=== PATIENT | female | born 1975 | race African-American/Black ===

== ENCOUNTER 2017-07-28 10:02 | Inpatient (IN) | payer OTHER ==
[~2017-07-28] VITALS: Ht 172.7 cm; Wt 69.6 kg
[2017-07-28 11:08] LABS: UA SPECIFIC GRAVITY 1.015 (1.005-1.035); microscopic required? YES; urine erythrocyte NEGATIVE (NEGATIVE)
[2017-07-28 11:21] LABS: AMPHETAMINE QUAL UR NONE DETECTED (NEG <=1000)
[2017-07-28 11:29] LABS: PLATELET COUNT 417 x10^3mcL (130-400); RED CELL DISTRIBUTION WIDTH 15.4 % (11.5-14.5)
[2017-07-28 11:36] LABS: CALCIUM 8.9 mg/dL (8.5-10.1); CARBON DIOXIDE 30.6 mmol/L (21-32); CHLORIDE SERUM 99 mmol/L (98-107); CREATININE SERUM 0.8 mg/dL (0.6-1.0); GFR1 > 60 mL/min; GLUCOSE SERUM 84 mg/dL (74-106); POTASSIUM SERUM 4.4 mmol/L (3.5-5.1); SODIUM SERUM 136 mmol/L (136-145)
[2017-07-28 11:43] LABS: MONOCYTE 6 % (0-7); SEGMENTED NEUTROPHILS 81 % (37-75)
[2017-07-28 11:44] LABS: ATYPICAL LYMPH 2 %; BAND NEUTROPHIL 0 % (0-10); BASOPHIL 0 % (0-2)
[2017-07-28 11:45] LABS: PLATELET MORPHOLOGY PLATELETS INCREASED; rbc morphology (normal/abnorm) ABNORMAL (NORMAL)
[2017-07-28 11:48] LABS: ALBUMIN 3.4 g/dL (3.4-5.0); ALKALINE PHOSPHATASE 88 U/L (46-116); ALT/SGPT 15 U/L (14-59); AMYLASE 41 U/L (25-115); AST/SGOT 12 U/L (15-37); BILIRUBIN TOTAL 0.2 mg/dL (0.20-1.00); LIPASE 116 IU/L (73-393); T4(THYROXINE) 4.7 ug/dL (4.7-13.3); TOTAL PROTEIN, SERUM 7.5 g/dL (6.4-8.2)
[2017-07-28 11:50] LABS: CHOLESTEROL 221 mg/dL (<200); HDL CHOLESTEROL 61 mg/dL (40-60)
[2017-07-28] MEDS ORDERED: LEVOTHYROXIN0.025 M2 PO (12:25)
[2017-07-28] MEDS ORDERED: ROC0.5 PO (12:26)
[2017-07-28] MEDS ORDERED: GOOD NEIGH1200 MG/15 PO (12:26)
[2017-07-28] MEDS ORDERED: LOV40I SQ (12:26)
[2017-07-28] MEDS ORDERED: PEPCID20 MG PO (12:27)
[2017-07-28] MEDS ORDERED: RISPERDAL2 M1 PO (12:27)
[2017-07-28] MEDS ORDERED: APAP/HYDROCODON1 T13 PO (12:28)
[2017-07-28] MEDS ORDERED: [UNRECOGNIZED DRUG - CODE] PO (12:28)
[2017-07-28] MEDS ORDERED: SYSTANE0.3% (12:29)
[2017-07-28] MEDS ORDERED: XOPENEX1.25 MG/3 (12:29)
[2017-07-28] MEDS ORDERED: SUPER CALCIUM600 MG PO (12:30)
[2017-07-28 13:50] VITALS: BP 138/88
[2017-07-28 13:52] VITALS: BP 138/88
[2017-07-28 16:09] VITALS: BP 124/80
[2017-07-28 20:58] VITALS: BP 107/73
[2017-07-29 05:49] LABS: BASOPHIL % 0.1 % (0-2)
[2017-07-29 05:56] LABS: CALCIUM 9.4 mg/dL (8.5-10.1); CARBON DIOXIDE 26.5 mmol/L (21-32); CHLORIDE SERUM 101 mmol/L (98-107); CREATININE SERUM 0.9 mg/dL (0.6-1.0); GFR1 > 60 mL/min; GLUCOSE SERUM 101 mg/dL (74-106); POTASSIUM SERUM 4.2 mmol/L (3.5-5.1); SODIUM SERUM 137 mmol/L (136-145)
[2017-07-29 06:35] VITALS: BP 107/72
[2017-07-29 07:07] LABS: PLATELET COUNT 411 x10^3mcL (130-400); RED CELL DISTRIBUTION WIDTH 15.8 % (11.5-14.5)
[2017-07-29 09:28] VITALS: BP 121/76
[2017-07-29 13:59] VITALS: BP 113/73
[2017-07-29 17:09] VITALS: BP 119/77
[2017-07-29 21:21] VITALS: BP 111/73
[2017-07-30 05:19] VITALS: BP 128/73
[2017-07-30 10:00] VITALS: BP 117/69
[2017-07-30 13:14] VITALS: BP 115/73
[2017-07-30 17:55] VITALS: BP 114/76
[2017-07-30 22:02] VITALS: BP 107/68
[2017-07-31 06:03] VITALS: BP 148/80
[2017-07-31 10:06] VITALS: BP 107/67
[2017-07-31 13:27] VITALS: BP 116/67
[2017-07-31 15:09] VITALS: BP 116/67
== END 2017-07-31 16:18 | disposition other institution (70) | DRG 177 ==
LOC: ED 10:02 → DU 12:22
PROVIDERS: Emergency Medicine; Internal Medicine
DX: J69.0 Pneumonitis due to inhalation of food and vomit (principal); J96.21 Acute and chronic respiratory failure with hypoxia; Z93.0 Tracheostomy status; J45.909 Unspecified asthma, uncomplicated; J38.00 Paralysis of vocal cords and larynx, unspecified; R13.10 Dysphagia, unspecified; K27.9 Peptic ulcer, site unspecified, unspecified as acute or chronic, without hemorrhage or perforation; I10 Essential (primary) hypertension
CPT/HCPCS: 36600; 83880; 92610; J1650; J2543; J2920; J2930; J3480; J7040; J7050; J7613; J7626; J7644